=== PATIENT | female | born 1985 | race American Indian/Alaskan Native ===

== ENCOUNTER 2018-02-25 16:18 | Inpatient (IN) | payer OTHER ==
[~2018-02-25] VITALS: Ht 170.2 cm; Wt 88.9 kg
[2018-03-05] MEDS ORDERED: PRENATAL TABLE1 EAC1 PO (10:42)
== END 2018-03-07 18:44 | disposition home or self-care (01) | DRG 775 ==
LOC: LDR 03-05 09:17 → SURG-SUITE 03-05 09:17 → SURH 03-07 14:45 → SURG-SUITE 03-07 18:44
PROC: 10E0XZZ Delivery of Products of Conception, External Approach (ICD-10-PCS; principal; 2018-03-05)
PROC: 0HQ9XZZ Repair Perineum Skin, External Approach (ICD-10-PCS; 2018-03-05)
PROC: 10907ZC Drainage of Amniotic Fluid, Therapeutic from Products of Conception, Via Natural or Artificial Opening (ICD-10-PCS; 2018-03-05)
PROC: 4A1HXCZ Monitoring of Products of Conception, Cardiac Rate, External Approach (ICD-10-PCS; 2018-03-05)
DX: O70.0 First degree perineal laceration during delivery (principal); O99.12 Other diseases of the blood and blood-forming organs and certain disorders involving the immune mechanism complicating childbirth; O99.824 Streptococcus B carrier state complicating childbirth; O69.2XX0 Labor and delivery complicated by other cord entanglement, with compression, not applicable or unspecified; Z3A.39 39 weeks gestation of pregnancy; Z37.0 Single live birth

== ENCOUNTER 2022-11-29 18:59 | Inpatient (IN) | payer OTHER ==
[~2022-11-29] VITALS: Ht 170.2 cm; Wt 77.1 kg
[~2022-11-29 18:59] MED LIST: PRENATAL TABLE1 EAC1 PO
--- NOTE | 2022-11-29 19:15 | NUR ---
SE RECIBE PTE ALERTA Y ORIENTADA X3 LA CUAL REFIERE VENIR POR DOLOR DE HEMMOROIDES DESDE HACE VARIOS TERRY. PTE UTILIZANDO MEDICAMENTO PARA LOS HEMMOROIDES Y EL DOLOR. PTE DE DR. LILLIAN BELLAMY. PTE SE COLOCA EN AREA DE OBSERVACION.
[2022-11-30] MEDS ORDERED: PERCOCET 5-3251 EACH PO (11:48)
== END 2022-11-30 18:07 | disposition home or self-care (01) | DRG 349 ==
LOC: ER 18:59 → SURG 19:45
PROVIDERS: ADMIT Surgery; ATTEND Surgery
PROC: 06BY0ZC Excision of Hemorrhoidal Plexus, Open Approach (ICD-10-PCS; principal; 2022-11-29)
PROC: 06LY7CC Occlusion of Hemorrhoidal Plexus with Extraluminal Device, Via Natural or Artificial Opening (ICD-10-PCS; 2022-11-29)
PROC: 3E0T3BZ Introduction of Anesthetic Agent into Peripheral Nerves and Plexi, Percutaneous Approach (ICD-10-PCS; 2022-11-29)
DX: K64.5 Perianal venous thrombosis (principal); K64.8 Other hemorrhoids; K64.4 Residual hemorrhoidal skin tags; Z20.822 Contact with and (suspected) exposure to COVID-19